=== PATIENT | female | born 1975 | race Caucasian/White ===

== ENCOUNTER 2018-09-19 12:13 | Emergency (ER) | payer SELFPAY ==
[2018-09-19] MEDS ORDERED: 0.9 % SODIUM CHLORIDE 1,000 ML IV ONE ×2 (12:15→15:43)
[2018-09-19] MEDS ORDERED: NITROGLYCERIN 0.4 MG TAB.SUBL SL ONE (12:15)
[2018-09-19] MEDS ORDERED: ONDANSETRON HCL/PF 4 MG/ 2ML VIAL ONE ×2 (12:22→16:43)
[2018-09-19 12:36] LABS: BASOPHILS % 0.6 (0.0-1.5); EOSINOPHILS % 2.1 % (0.0-6.8); MEAN CORPUSCULAR HEMOGLOBIN 25.5 pg (28.0-34.0); MONOCYTES % 4.7 % (0.0-11.0); NEUTROPHILS # 6.7 # k/uL (1.4-7.7)
[2018-09-19 13:10] LABS: eGFR (Non-African) > 60
--- NOTE | 2018-09-19 14:17 | Diagnostic Imaging Report ---
ROSA MARIA GONSALEZ (CUSTODIAL MANAGER) - ER [facility] [id number] [id number] Report Submission Date: Sep 19, 2018 12:41:55 PM CDT Patient Study Name: CLAUDINE THAYER Date: Sep 19, 2018 12:19:11 PM CDT Modality Type: DX Gender: F Description: CHEST : 75 Institution: [facility] Physician: ROSA MARIA GONSALEZ (CUSTODIAL MANAGER) - ER Portable chest History: Irregular heartbeat. Chest pain Portable chest dated September 19, 2018 demonstrates a normal cardiomediastinal silhouette. Pulmonary vascularity is normal. Lungs are clear. Impression: No active disease. Electronically signed on Sep 19, 2018 12:41:55 PM CDT by: Scarlet WIGGINS
--- NOTE | 2018-09-19 14:30 | Diagnostic Imaging Report ---
ROSA MARIA GONSALEZ (PULMONOLOGY TECHNICIAN) - ER [facility] [id number] [id number] Report Submission Date: Sep 19, 2018 2:24:14 PM CDT Patient Study Name: CLAUDINE THAYER Date: Sep 19, 2018 1:37:11 PM CDT Modality Type: CT\SR Gender: F Description: CT CHEST W/ CONTRAST : 75 Institution: [facility] Physician: ROSA MARIA GONSALEZ (LILIA) - ER CT chest with contrast History: Chest pain. Pain between the shoulder blades. Technique: Helically acquired images were obtained through the chest following IV contrast. There are no comparison studies. Findings: Scattered small blebs are present at both lung bases. There is mild posterior dependent atelectasis bilaterally. There are no pulmonary infiltrates or suspicious pulmonary masses. There is no pericardial or pleural effusion. There is no mediastinal or hilar lymphadenopathy. There is diffuse hepatic steatosis. There has been a cholecystectomy. There is a mass of the left adrenal gland measuring 3 cm in greatest dimension and containing islands of fat consistent with a myelolipoma. The right adrenal gland is normal. The spleen is normal. Visualized portions of the pancreas and visualized portions of the kidneys are unremarkable. Impression: 3 cm left adrenal lesion consistent with a myelolipoma. Hepatic steatosis. Small scattered blebs are present at the lung bases bilaterally. There is mild bilateral posterior dependent atelectasis. Electronically signed on Sep 19, 2018 2:24:14 PM CDT by: Scarlet WIGGINS
[2018-09-19] MEDS ORDERED: NITROGLYCERIN IN 5 % DEXTROSE 50 MG/250 ML ML IV ONE (14:32)
[2018-09-19] MEDS ORDERED: ASPIRIN 81 MG CHEW TAB PO ONE (14:33)
[2018-09-19] MEDS ORDERED: POTASSIUM CHLORIDE 20 MEQ TABLET.ER PO ONE (15:15)
--- NOTE | 2018-09-19 15:23 | ED Physician Documentation ---
Chest Pain - HISTORIAN Historian: patient - HPI Stated Complaint: chest pain Chief Complaint: Chest Pain Onset: days ago Timing: worse (this morning at work around ) Duration: constant (today constant) Last known Well Date: 09/16/18 Last Known Well Time: 12:00 Context: other (at work) Severity: moderate Quality: pressure, tightness Chest Pain Radiation: shoulders, back. denies: no radiation Chest Pain Signs/Symptoms: nausea, dizziness, palpitations. 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 Patient c/o radiation of pain into back, denies SOB. Patient states she has had intermittent chest "fullness, throbbing and pressure" since last 09/16/2018. Patient denies any previous cardiac history.) - ROS CONST: none MS/LYMPH: none GI/: nausea. denies: abdominal pain, problems urinating, vomiting, diarrhea, black stools EYES/ENT: none SKIN/ENDO: none NEURO/PSYCH: headache. 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 ), other Allergies/Adverse Reactions: Allergies Allergy/AdvReac Type Severity Reaction Status Date / Time codeine Allergy Verified 09/19/18 13:04 Sulfa (Sulfonamide Allergy Verified 09/19/18 13:04 Antibiotics) Home Medications: Ambulatory Orders Medication Instructions Recorded Insulin Glargine,Hum.rec.anlog 30 Days #9 08/27/17 [Toujeo Solostar] Metformin HCl [Glucophage Xr] 30 Days #60 08/27/17 Atorvastatin Calcium [Lipitor] 09/19/18 Insulin Lispro [Humalog] 09/19/18 Lisinopril [Prinivil] 5 mg PO QD 09/19/18 Ubidecarenone [Co Q-10] 09/19/18 - SOCIAL HX Smoking History: non-smoker - FAMILY HX Family HX: denies: none - VITAL SIGNS Vital Signs: Vital Signs Temp Pulse Resp BP Pulse Ox 98.5 F 90 18 187/106 99 09/19/18 12:13 09/19/18 12:48 09/19/18 12:13 09/19/18 12:13 09/19/18 12:48 - REVIEWED ASSESSMENTS Nursing Assessment Reviewed: Yes Vitals Reviewed: Yes Progress - Progress Progress: CP 3/10 - relieved with 1 sublingual nitroglycerin. Patient c/o pain radiating between shoulder blades. 1315 Troponin negative. Will progress with CT check to r/o dissection. 1430 Patient got up to bathroom; Chest pain with exertion - rated 3-4/10; Nitro started at 3mcg/min. Will titrate as needed. Aspirin given. Reviewed lab and CT results with patient. Continued unifocal frequent PVCs noted on monitor; patient c/o palpitations. No previous history of palpitations. K 3.8 - 20meq KCL given. Magnesium send out; will defer to [facility]. Recommend transfer for cardiac work up - patient would like transfer to [facility]. Call to Sebastian feed house supervisor at [facility]. [address] Hooks. 1645 Patient remained CP free with NTG at 10mcg/min; transfered to [facility] via EMS. - EKG/XRAY/CT EKG: rhythm (SR, rate 92 - chest "tightness" 3/10) ED Results Lab/Radiology - Lab Results Lab Results: Lab Results 09/19/18 09/19/18 09/19/18 12:40 12:40 12:18 WBC 10.10 K/ul K/ul (4.00-12.00) RBC 5.55 M/ul H M/ul (3.90-5.20) Hgb 14.2 g/dL g/dL (12.0-16.0) Hct 43.5 % % (34.5-46.5) MCV 78.0 fl L fl (80.0-100.0) MCH 25.5 pg L pg (28.0-34.0) MCHC 32.6 g/dL g/dL (30.0-36.0) RDW 14.0 % % (11.3-14.3) Plt Count 244 K/mm3 K/mm3 (130-400) Neut % (Auto) 66.1 % % (39.0-79.0) Lymph % (Auto) 26.5 % % (16.0-50.0) Collin % (Auto) 4.7 % % (0.0-11.0) Eos % (Auto) 2.1 % % (0.0-6.8) Baso % (Auto) 0.6 (0.0-1.5) Neut # (Auto) 6.7 # k/uL # k/uL (1.4-7.7) Lymph # (Auto) 2.7 # k/uL # k/uL (0.6-4.0) Collin # (Auto) 0.5 # k/uL # k/uL (0.0-0.9) Eos # (Auto) 0.2 # k/uL # k/uL (0.0-0.6) Baso # (Auto) 0.1 # k/uL # k/uL (0.0-0.5) Sodium 143 mmol/L mmol/L (136-145) Potassium 3.8 mmol/L mmol/L (3.5-5.1) Chloride 105 mmol/L mmol/L (98-107) Carbon Dioxide 25 mmol/L mmol/L (22-30) BUN 13 mg/dL mg/dL (7-17) Creatinine 0.60 mg/dL mg/dL (0.52-1.04) Estimated Creat Clear 201 Est GFR ( Amer) > 60 (60 - ) Est GFR (Non-Af Amer) > 60 (60 - ) Glucose 104 mg/dL mg/dL (74-106) Calcium 8.7 mg/dL mg/dL (8.4-10.2) Total Bilirubin 0.3 mg/dL mg/dL (0.2-1.3) AST 24 U/L U/L (15-46) ALT 49 U/L U/L (13-69) Alkaline Phosphatase 163 U/L H U/L (38-126) Troponin I < 0.03 ng/mL L ng/mL (0.03-0.06) Total Protein 6.9 g/dL g/dL (6.3-8.2) Albumin 3.9 g/dL g/dL (3.5-5.0) - Radiology Radiology Impressions: CT chest with contrast History: Chest pain. Pain between the shoulder blades. Technique: Helically acquired images were obtained through the chest following IV contrast. There are no comparison studies. Findings: Scattered small blebs are present at both lung bases. There is mild posterior dependent atelectasis bilaterally. There are no pulmonary infiltrates or suspicious pulmonary masses. There is no pericardial or pleural effusion. There is no mediastinal or hilar lymphadenopathy. There is diffuse hepatic steatosis. There has been a cholecystectomy. There is a mass of the left adrenal gland measuring 3 cm in greatest dimension and containing islands of fat consistent with a myelolipoma. The right adrenal gland is normal. The spleen is normal. Visualized portions of the pancreas and visualized portions of the kidneys are unremarkable. Impression: 3 cm left adrenal lesion consistent with a myelolipoma. Hepatic steatosis. Small scattered blebs are present at the lung bases bilaterally. There is mild bilateral posterior dependent atelectasis. Electronically signed on Sep 19, 2018 2:24:14 PM CDT by: Scarlet Wiley Portable chest History: Irregular heartbeat. Chest pain Portable chest dated September 19, 2018 demonstrates a normal cardiomediastinal silhouette. Pulmonary vascularity is normal. Lungs are clear. Impression: No active disease. Electronically signed on Sep 19, 2018 12:41:55 PM CDT by: Scarlet Wiley - Orders Orders: ED Orders Category Date Time Status Continuous EKG monitoring Q30M Care 09/19/18 12:18 Active Continuous Pulse Oximetry Q30M Care 09/19/18 12:[address] IV Lock 1T Care 09/19/18 12:19 Active CHEST 1VIEW [RAD] Stat Exams 09/19/18 12:[address] CHEST W/ CONTRAST Stat Exams 09/19/18 Completed CBC/PLATELET/DIFF Stat Lab 09/19/18 12:18 Completed CMP Stat Lab 09/19/18 12:40 Completed TROPONIN I (cTnI) Stat Lab 09/19/18 12:40 Completed UA W/MICRO IF INDICATED Stat Lab 09/19/18 12:19 Ordered 0.9 % Sodium Chloride [Normal Saline] 1,000 ml Med 09/19/18 12:15 Discontinued IV .STK-MED Aspirin Med 09/19/18 14:33 Discontinued 324 mg PO NOW ONE Nitroglycerin [Nitroquick] Med 09/19/18 12:15 Discontinued 0.4 mg SL .STK-MED ONE Nitroglycerin in 5 % Dextrose [Ntg 0.2 mg/ml in D5w] Med 09/19/18 14:32 Active 50 mg in 250 ml IV 1T Ondansetron HCl/Pf [Zofran 4 mg/2 ml] Med 09/19/18 12:22 Discontinued 4 mg .ROUTE .STK-MED ONE Potassium Chloride [Klor-Con M20] Med 09/19/18 15:15 Once 20 meq PO NOW ONE Oxygen Daily Oxygen 09/19/18 12:30 Ordered EKG WITH COMPARISON Stat Ther 09/19/18 12:18 Completed Chest Pain Physical Exam - EXAM General Appearance: mild distress EENT: pharynx normal, no signs of dehydration, LANE (left only; right eye false) Respiratory: no resp. distress, chest non-tender, nml breath sounds CVS: reg. rate & rhythm, no murmur, no gallop, no friction rub, pulses full, pulses equal, frequent extrasystoles (unifocal PVC) Abdomen: soft, no organomegaly, normal bowel sounds, no abdominal bruit, no distension Skin: normal color, warm/dry, NR, INT, DR Extremities: non-tender, normal range of motion, no evidence of injury, no edema, J, [employer] OPERATOR Neuro: oriented X3, CN's nml as tested, motor nml, sensation nml, mood/affect nml Discharge Clincal Impression: Chest pain at rest, Chest pain on exertion, Heart palpitations, Frequent unifocal PVCs, Chest pain, rule out acute myocardial infarction Referrals: Primary Doctor,No [Primary Care Provider] - 2 Days Condition: Stable Disposition: XFER SHT-TRM HOSP Decision to Admit: NO Decision Time: 15:40
[2018-09-19 16:34] LABS: APPEARANCE,URINE CLEAR (CLEAR); COLOR,URINE YELLOW (YELLOW); OCCULT BLOOD,URINE NEGATIVE (NEGATIVE); UROBILINOGEN URINE 0.2 Eu (0.2-1.0)
[2018-09-19] MEDS ORDERED: ONDANSETRON HCL/PF 4 MG/ 2ML VIAL IVP ONE (16:46)
[2018-09-19 16:51] VITALS: BP 112/62
== END 2018-09-19 16:45 | disposition short-term general hospital (02) ==
LOC: ED 12:13
DX: R07.9 Chest pain, unspecified (principal); R00.2 Palpitations; I49.3 Ventricular premature depolarization; I10 Essential (primary) hypertension; E11.9 Type 2 diabetes mellitus without complications; E78.5 Hyperlipidemia, unspecified
CPT/HCPCS: 71045; 71260; 80053; 81002; 84484; 85025; 93005; A9270; J2405; J3490; J7030; 96365; 96367; 96375; 96376; 99285; Q9967; S1016